=== PATIENT | female | born 1960 | race Caucasian/White ===

== ENCOUNTER 2016-10-04 11:23 | Emergency (ER) | payer OTHER ==
--- NOTE | 2016-10-04 13:39 | ED ORDER SUMMARY ---
..... Patient: CHRISTIAN CHENG OrderSheet [facility] VisitID: [id number] [address] [place] [address] 56y, F Registration Date/Time: 10/04/2016 ORDER SHEET Weight: 77.1 kg (stated) Allergies: Ibuprofen GENERAL ORDERS: MEDICATION ORDERS: Hydrocodone-APAP PO 5/325 mg (NOW) (13:35 10/04/2016 Shell Mata) (Ac 13:36 Burton Sanchez.Marv) (13:53 Burton Sanchez.Marv) IV FLUIDS: ORDER SHEET NOTES: [Electronically signed by Esther Walton P.A.-C (13:44 10/04/2016)] [Electronically signed by Mary Grace Lutz R.N. (13:55 10/04/2016)] [Electronically locked/signed by Mary Grace Lutz R.N. (13:55 10/04/2016)]
--- NOTE | 2016-10-04 13:39 | ED ORDER SUMMARY ---
..... Patient: CHRISTIAN CHENG OrderSheet [facility] VisitID: [id number] [address] [place] [address] 56y, F Registration Date/Time: 10/04/2016 ORDER SHEET Weight: 77.1 kg (stated) Allergies: Ibuprofen GENERAL ORDERS: MEDICATION ORDERS: Hydrocodone-APAP PO 5/325 mg (NOW) (13:35 10/04/2016 Shell Mata) (Ac 13:36 Burton Sanchez.Marv) (13:53 Burton Sanchez.Marv) IV FLUIDS: ORDER SHEET NOTES: [Electronically signed by Esther Walton P.A.-C (13:44 10/04/2016)] [Electronically signed by Mary Grace Lutz R.N. (13:55 10/04/2016)] [Electronically locked/signed by Mary Grace Lutz R.N. (13:55 10/04/2016)]
--- NOTE | 2016-10-04 13:39 | ED CLINICAL REPORT ---
Clinical Report - Physicians/Mid Levels [facility] [address] [place] [address] 10/04/2016 11:23 Patient: CHRISTIAN CHENG Time Seen: 13:41 Oct 04 2016. Arrived- By private vehicle. Historian- patient. HISTORY OF PRESENT ILLNESS Chief Complaint: back pain, neck pain, chronic pain, b/l knee pain. This started yesterday years/ months and is still present. (56-year-old female who reports chronic back pain history of bilateral knee pain, yesterday upon standing sustained pain to her right knee, which has since radiated to her low back and neck. She repoors worsening, given her inability to sleep. She has an appointment on the , with pcp , who is aware of her pain, however does not prescribe hets history of meth use recently. Reports history of narcotic dependence. Denies any new recent fall or trauma. Paresthesias, incontinence. Denies fevers. Denies any recent illness. Patient arrives with family.). REVIEW OF SYSTEMS No fever, nausea, diarrhea, chills or difficulty with urination. No skin rash or calf pain. All systems otherwise negative, except as recorded above. PAST HISTORY Problems: Sprain. Sinusitis. Bronchitis. Changed Mental Status. Intervertebral Disc Disease. Adjustment Disorder. Insomnia. Sciatica. Chest Wall Pain. Dental Caries. Dental Pain. Hyperlipidemia. Depression. Neck Pain. Tetanus Status. LNMP - Last Normal Menstrual Period. Back Injury. Back Pain. Lumbar Strain. Headache. Hypertension. Additional Surgeries: Carpal Tunnel Surgery. Dental Surgery. Shoulder Surgery. Tubal Ligation. Medications: bipolar medicine. Hctz 25mg daily . Lisinopril Oral 20 mg, daily. Paxil Oral. Allergies: Ibuprofen. SOCIAL HISTORY Smoker- current status unknown. History of drug use: methamphetamines, marijuana. Not an IV drug user. ADDITIONAL NOTES The nursing notes have been reviewed. PHYSICAL EXAM Vital Signs: 10/04/2016 12:34 BP: 112/77. HR: 73. RR: 18. O2 saturation: 99%. Temp: 98.7 F. Pain level now: 9/10. Appearance: Alert. ENT: Nose normal. Neck: Normal inspection. Neck supple. CVS: Normal heart rate and rhythm. Heart sounds normal. Respiratory: No respiratory distress. Breath sounds normal. Back: Mild soft-tissue tenderness in the right lower and left lower lumbar area. No limitation in ROM. Skin: Skin warm. Extremities: Right hip. No tenderness. Left hip. No tenderness or swelling. Right knee. No tenderness, swelling, ecchymosis or foreign body. Left knee. No tenderness or swelling. Neuro: Oriented X 3. No motor deficit. Sensory deficit noted. PROGRESS AND PROCEDURES Course of Care: There are no risks for spinal epidural abscess or hematoma as patient is without any risk factors such as IVDA or evidence of active infection, no midline tenderness to percussion. Hence I do not feel emergent imaging with an MRI is indicated. However I did discuss with the patient that if these symptoms develop, or if the pain does not resolve an MRI may need to be done outpatient, or in the ED if symptoms worsen acutely or new onset of the above mentioned symptoms develop. Patient is stable. Symptoms better. Patient/family counseled. Disposition: Discharged. CLINICAL IMPRESSION Hypertension. Polyarthritis. Chronic lumbar back pain. INSTRUCTIONS OTC Medications: Benadryl Allergy 25 mg (available over the counter): take 1 orally for 3 days. Dispense ten (10). No refill. Substitution is permissible. Follow-up: Follow up with your doctor on the . (Electronically signed by Esther Walton P.A.-C 10/04/2016 13:44)
--- NOTE | 2016-10-04 13:39 | ED NURSING NOTES ---
Clinical Report - Nurses [facility] [address] [place] [address] 10/04/2016 11:23 Patient: CHRISTIAN CHENG TRIAGE Triage time 12:34. Acuity: LEVEL 4. Chief Complaint: MUSCLE ACHES and BACK PAIN. Alert. No acute distress. VIRAL COMA SCORE: [place] Coma Scale: 15- eyes open spontaneously (4); best verbal response- oriented x 4 (5); best motor response- obeys commands (6). --12:43 Mary Grace Lutz R.N. 12:34 10/04/16. BP: 112/77. HR: 73. RR: 18. O2 saturation: 99% on room air. Temp: 98.7 F. Pain level now: 06/05. --12:43 Mary Grace Lutz R.N. Weight: 77.1 kg stated. Height/Length: 63 inches Per Patient. BMI: 30.1. --12:40 Mary Grace Lutz R.N. Medications Hctz 25mg daily . Lisinopril Oral 20 mg, daily. Paxil Oral. --12:38 Mary Grace Lutz R.N. bipolar medicine. --12:39 Mary Grace Lutz R.N. Medication/allergy information source: the patient. --12:43 Mary Grace Lutz R.N. Allergies Ibuprofen. --12:39 Mary Grace Lutz R.N. History Arrived by private vehicle. Historian: patient. Accompanied by family. Primary physician (Raymond). Onset. (since 2011). PAST MEDICAL HX: The patient is post-menopausal. SOCIAL HX: Heavy tobacco smoker- 1-2 packs per day. Alcohol use. Patient is a recovering alcoholic. (2011). History of drug use: marijuana. FALL RISK ASSESSMENT: Fall risk assessment completed. No fall risk identified. FUNCTIONAL ASSESSMENT: Functional assessment: no impairments noted. LEARNING NEEDS ASSESSMENT: The learning needs assessment revealed no barriers. --12:43 Mary Grace Lutz R.N. PROBLEMS: Sprain. Sinusitis. Bronchitis. Changed Mental Status. Intervertebral Disc Disease. Adjustment Disorder. Insomnia. Sciatica. Chest Wall Pain. Dental Caries. Dental Pain. Hyperlipidemia. Depression. Neck Pain. Tetanus Status. LNMP - Last Normal Menstrual Period. Back Injury. Back Pain. Lumbar Strain. Headache. Hypertension. --12:40 Mary Grace Lutz R.N. ADDITIONAL SURGERIES: Carpal Tunnel Surgery. Dental Surgery. Shoulder Surgery. Tubal Ligation. --12:40 Mary Grace Lutz R.N. Assessment GENERAL / NEURO / PSYCH: The patient is awake and alert, is oriented and cooperative and appears uncomfortable. She has poor eye contact. RESPIRATORY: Respirations not labored. SKIN: Skin is warm and dry. --12:43 Mary Grace Lutz R.N. Interventions ID and allergy band on patient. To waiting room. --12:43 Mary Grace Lutz R.N. PHYSICAL ASSESSMENT 13:51 10/04/16. Ambulatory to room. GENERAL / NEURO / PSYCH: Alert. Oriented X 4. Appears in no acute distress. RESPIRATORY: Respirations not labored. SKIN: Skin is warm and dry. --13:51 Mary Grace Lutz R.N. NURSING PROGRESS NOTES 13:40. Patient placed in chair. --13:52 Mary Grace Lutz R.N. 13:40 10/04/2016 Hydrocodone-APAP (Hydrocodone-Acetaminophen) PO 5/325 mg Tablets 1 tab given. Allergies verified, confirmed 5 rights and sedative warning given to the patient. --13:53 Mary Grace Lutz R.N. 13:40. The patient is calm. Overall patient status is the same- she states feels the same. RESPIRATORY: No respiratory distress. SKIN: Skin is warm and dry. --13:53 Mary Grace Lutz R.N. DISPOSITION / DISCHARGE Departure time: 1340. Condition at departure: stable. No learning barriers present. Discharge instructions provided and reviewed with the patient. Reviewed medication(s). Prescription(s) given to the patient. Patient verbalized understanding. Written instructions provided in Luxembourgish. The patient was discharged home and accompanied by brand director. She left the Emergency Department ambulatory and via private vehicle. FALL RISK ASSESSMENT: Fall risk assessment completed. No fall risk identified. --13:54 Bolivar, Mary Grace, R.N. Locked/Released at 10/04/2016 13:55 by Mary Grace Lutz R.N.
--- NOTE | 2016-10-04 13:39 | ED NURSING NOTES ---
Clinical Report - Nurses [facility] [address] [place] [address] 10/04/2016 11:23 Patient: CHRISTIAN CHENG TRIAGE Triage time 12:34. Acuity: LEVEL 4. Chief Complaint: MUSCLE ACHES and BACK PAIN. Alert. No acute distress. VIRAL COMA SCORE: [place] Coma Scale: 15- eyes open spontaneously (4); best verbal response- oriented x 4 (5); best motor response- obeys commands (6). --12:43 Mary Grace Lutz R.N. 12:34 10/04/16. BP: 112/77. HR: 73. RR: 18. O2 saturation: 99% on room air. Temp: 98.7 F. Pain level now: 06/05. --12:43 Mary Grace Lutz R.N. Weight: 77.1 kg stated. Height/Length: 63 inches Per Patient. BMI: 30.1. --12:40 Mary Grace Lutz R.N. Medications Hctz 25mg daily . Lisinopril Oral 20 mg, daily. Paxil Oral. --12:38 Mary Grcae Lutz R.N. bipolar medicine. --12:39 Mary Grace Lutz R.N. Medication/allergy information source: the patient. --12:43 Mary Grace Lutz R.N. Allergies Ibuprofen. --12:39 Mary Grace Lutz R.N. History Arrived by private vehicle. Historian: patient. Accompanied by family. Primary physician (Raymond). Onset. (since 2011). PAST MEDICAL HX: The patient is post-menopausal. SOCIAL HX: Heavy tobacco smoker- 1-2 packs per day. Alcohol use. Patient is a recovering alcoholic. (2011). History of drug use: marijuana. FALL RISK ASSESSMENT: Fall risk assessment completed. No fall risk identified. FUNCTIONAL ASSESSMENT: Functional assessment: no impairments noted. LEARNING NEEDS ASSESSMENT: The learning needs assessment revealed no barriers. --12:43 Mary Grace Lutz R.N. PROBLEMS: Sprain. Sinusitis. Bronchitis. Changed Mental Status. Intervertebral Disc Disease. Adjustment Disorder. Insomnia. Sciatica. Chest Wall Pain. Dental Caries. Dental Pain. Hyperlipidemia. Depression. Neck Pain. Tetanus Status. LNMP - Last Normal Menstrual Period. Back Injury. Back Pain. Lumbar Strain. Headache. Hypertension. --12:40 Mary Grace Lutz R.N. ADDITIONAL SURGERIES: Carpal Tunnel Surgery. Dental Surgery. Shoulder Surgery. Tubal Ligation. --12:40 Mary Grace Lutz R.N. Assessment GENERAL / NEURO / PSYCH: The patient is awake and alert, is oriented and cooperative and appears uncomfortable. She has poor eye contact. RESPIRATORY: Respirations not labored. SKIN: Skin is warm and dry. --12:43 Mary Grace Lutz R.N. Interventions ID and allergy band on patient. To waiting room. --12:43 Mary Grace Lutz R.N. PHYSICAL ASSESSMENT 13:51 10/04/16. Ambulatory to room. GENERAL / NEURO / PSYCH: Alert. Oriented X 4. Appears in no acute distress. RESPIRATORY: Respirations not labored. SKIN: Skin is warm and dry. --13:51 Mary Grace Lutz R.N. NURSING PROGRESS NOTES 13:40. Patient placed in chair. --13:52 Mary Grace Lutz R.N. 13:40 10/04/2016 Hydrocodone-APAP (Hydrocodone-Acetaminophen) PO 5/325 mg Tablets 1 tab given. Allergies verified, confirmed 5 rights and sedative warning given to the patient. --13:53 Mary Grace Lutz R.N. 13:40. The patient is calm. Overall patient status is the same- she states feels the same. RESPIRATORY: No respiratory distress. SKIN: Skin is warm and dry. --13:53 Mary Grace Lutz R.N. DISPOSITION / DISCHARGE Departure time: 1340. Condition at departure: stable. No learning barriers present. Discharge instructions provided and reviewed with the patient. Reviewed medication(s). Prescription(s) given to the patient. Patient verbalized understanding. Written instructions provided in Kiswahili. The patient was discharged home and accompanied by sectional belt mold assembler. She left the Emergency Department ambulatory and via private vehicle. FALL RISK ASSESSMENT: Fall risk assessment completed. No fall risk identified. --13:54 Bolivar, Mary Grace, R.N. Locked/Released at 10/04/2016 13:55 by Mary Grace Lutz R.N.
--- NOTE | 2016-10-04 13:55 | ED MED RECONCILIATION SUMMARY ---
Patient: CHRISTIAN CHENG Medication Reconciliation Report [facility] VisitID: [id number] [address] [place] [address] 56y, F Registration Date/Time: 10/04/2016 Weight: 77.1 kg Height/Length: 63 in. BMI: 30.1 ALLERGIES: Ibuprofen The patient's Home Medications are listed below: THE FOLLOWING MEDICATIONS NEED TO BE RECONCILED: bipolar medicine Hctz 25mg daily Lisinopril Oral 20 mg, daily Paxil Oral The source(s) of the original Home Medication information: patient The following Medications were given to the patient in the Emergency Department: Hydrocodone-APAP [PO] PO 1 tab, administered: 10/04/2016 1:40:00 PM The following Medications were prescribed to the patient: Benadryl Allergy 25 mg (available over the counter): take 1 orally for 3 days. Dispense ten (10). No refill. Substitution is permissible. -- Esther Walton P.A.-C
--- NOTE | 2016-10-04 13:55 | ED MAR SUMMARY ---
..... Medication Administration Record [facility] [address] [place] [address] Patient: CHRISTIAN CHENG Visit ID: [id number] 56y, F Weight: 77.1 kg Height/Length: 63 in BMI: 30.1 ALLERGIES: Ibuprofen Given 13:40 10/04/2016 Mary Grace Lutz R.N. Medication Administered: HYDROCODONE-APAP [PO] (HYDROCODONE-ACETAMINOPHEN), Dose: 1 tab 5/325 mg Tablets PO. Medication Ordered: Hydrocodone-APAP PO 5/325 mg (NOW).
--- NOTE | 2016-10-04 13:55 | ED DISCHARGE INSTRUCTIONS ---
Patient: CHRISTIAN CHENG General Instructions [facility] VisitID: [id number] [place] [address] 56y, F Registration Date/Time: 10/04/2016 Hypertension. Polyarthritis. Chronic lumbar back pain. INSTRUCTIONS OTC Medications: Benadryl Allergy 25 mg (available over the counter): take 1 orally for 3 days. Dispense ten (10). No refill. Substitution is permissible. Follow-up: Follow up with your doctor on the . ADDITIONAL INFORMATION Arthralgia Arthralgia is the term for pain in or around the joint. It is not a disease but a symptom. This may involve one or more joints. Sometimes arthralgias move from joint to joint. There are many causes for joint pain. These include: Injury Osteoarthritis (from wearing out of the joint surface) Rheumatoid arthritis (an autoimmune disease) Gout (inflammation of the joint due to crystals in the joint fluid) Infection inside the joint Bursitis (inflammation of the fluid-filled sacs around the joint) Lupus and other collagen-vascular disease Home Care: Rest the involved joint(s) until your symptoms improve. You may use acetaminophen (Tylenol) or ibuprofen (Motrin, Advil) to control pain, unless another pain medicine was prescribed. [NOTE: If you have chronic liver or kidney disease or ever had a stomach ulcer or GI bleeding, talk with your doctor before using these medicines.] Follow Up with your doctor or as advised by our staff. [NOTE: If you had an X-ray it will be reviewed by a specialist. You will be notified of any new findings that may affect your care.] Return Promptly or contact your doctor if any of the following occurs: Pain increases Pain moves to other joints New rash appears Fever of 100.4F (38C) or higher, or as directed by your healthcare provider Back Pain [Acute Or Chronic] Back pain is usually caused by an injury to the muscles or ligaments of the spine. Sometimes the disks that separate each bone in the spine may bulge and cause pain by pressing on a nearby nerve. Back pain may also appear after a sudden twisting/bending force (such as in a car accident), after a simple awkward movement, or lifting something heavy with poor body positioning. In either case, muscle spasm is often present and adds to the pain. Acute back pain usually gets better in one to two weeks. Back pain related to disk disease, arthritis in the spinal joints or spinal stenosis (narrowing of the spinal canal) can become chronic and last for months or years. Unless you had a physical injury (for example, a car accident or fall) X-rays are usually not ordered for the initial evaluation of back pain. If pain continues and does not respond to medical treatment, x-rays and other tests may be performed at a later time. Home Care: You may need to stay in bed the first few days. But, as soon as possible, begin sitting or walking to avoid problems with prolonged bed rest (muscle weakness, worsening back stiffness and pain, blood clots in the legs). When in bed, try to find a position of comfort. A firm mattress is best. Try lying flat on your back with pillows under your knees. You can also try lying on your side with your knees bent up towards your chest and a pillow between your knees. Avoid prolonged sitting. This puts more stress on the lower back than standing or walking. During the first two days after injury, apply an ICE PACK to the painful area for 20 minutes every 2-4 hours. This will reduce swelling and pain. HEAT (hot shower, hot bath or heating pad) works well for muscle spasm. You can start with ice, then switch to heat after two days. Some patients feel best alternating ice and heat treatments. Use the one method that feels the best to you. You may use acetaminophen (Tylenol) or ibuprofen (Motrin, Advil) to control pain, unless another pain medicine was prescribed. [NOTE: If you have chronic liver or kidney disease or ever had a stomach ulcer or GI bleeding, talk with your doctor before using these medicines.] Be aware of safe lifting methods and do not lift anything over 15 pounds until all the pain is gone. Follow Up with your doctor or this facility if your symptoms do not start to improve after one week. Physical therapy may be needed. [NOTE: If X-rays were taken, they will be reviewed by a radiologist. You will be notified of any new findings that may affect your care.] Get Prompt Medical Attention if any of the following occur: Pain becomes worse or spreads to your legs Weakness or numbness in one or both legs Loss of bowel or bladder control Numbness in the groin or genital area You have been given the following additional information: Arthralgia Back Pain (Acute Or Chronic) (Electronically signed by Esther Walton P.A.-C 10/04/2016 13:44)
--- NOTE | 2016-10-04 13:55 | ED MED RECONCILIATION SUMMARY ---
Patient: CHRISTIAN CHENG Medication Reconciliation Report [facility] VisitID: [id number] [address] [place] [address] 56y, F Registration Date/Time: 10/04/2016 Weight: 77.1 kg Height/Length: 63 in. BMI: 30.1 ALLERGIES: Ibuprofen The patient's Home Medications are listed below: THE FOLLOWING MEDICATIONS NEED TO BE RECONCILED: bipolar medicine Hctz 25mg daily Lisinopril Oral 20 mg, daily Paxil Oral The source(s) of the original Home Medication information: patient The following Medications were given to the patient in the Emergency Department: Hydrocodone-APAP [PO] PO 1 tab, administered: 10/04/2016 1:40:00 PM The following Medications were prescribed to the patient: Benadryl Allergy 25 mg (available over the counter): take 1 orally for 3 days. Dispense ten (10). No refill. Substitution is permissible. -- Esther Walton P.A.-C
--- NOTE | 2016-10-04 13:55 | ED MAR SUMMARY ---
..... Medication Administration Record [facility] [address] [place] [address] Patient: CHRISTIAN CHENG Visit ID: [id number] 56y, F Weight: 77.1 kg Height/Length: 63 in BMI: 30.1 ALLERGIES: Ibuprofen Given 13:40 10/04/2016 Mary Grace Lutz R.N. Medication Administered: HYDROCODONE-APAP [PO] (HYDROCODONE-ACETAMINOPHEN), Dose: 1 tab 5/325 mg Tablets PO. Medication Ordered: Hydrocodone-APAP PO 5/325 mg (NOW).
== END 2016-10-04 13:40 | disposition home or self-care (01) ==
LOC: ED SRH 11:23
DX: I10 Essential (primary) hypertension (principal); M13.0 Polyarthritis, unspecified; M54.5 Low back pain; G89.29 Other chronic pain; Z79.899 Other long term (current) drug therapy; Z88.6 Allergy status to analgesic agent

== ENCOUNTER 2017-01-19 14:21 | Outpatient (CLI) | payer OTHER ==
--- NOTE | 2017-01-19 16:38 | DIAGNOSTIC IMAGING REPORT ---
PROCEDURE: MR LOWER EXT JOINT WO CONT-LT INDICATION: PAIN IN LEFT KNEE TECHNIQUE: PD axial, T1 and PD fat sat coronal, PD and PD fat sat sagittal, and sagittal oblique STIR sequence through the ACL. COMPARISON: None. FINDINGS: Menisci: Focal intrinsic intermediate signal within the posterior mesial horn of the lateral meniscus (series 7/8 image 13, series 4 image 17). Very small horizontal tear in the body of the medial meniscus (series 4 images 12 and 13). There is a focal vertical tear in the free edge of the body of the lateral meniscus (series 4 image 14). Ligaments: Anterior and posterior cruciate ligaments are intact. Medial and lateral collateral ligament complexes including posterolateral corner structures are normal. Extensor mechanism: Intact retinacular fibers, distal quadriceps, and patellar tendon. Normal patellar position. Osseous structures and articular surfaces: Very tiny focal subchondral edema in the posterior lateral tibial plateau (series 4 image 17, series 6 image 60). Moderate diffuse cartilage thinning in the lateral compartment, mainly along the tibial plateau without full-thickness defect. 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 Minor cartilage irregularity along the lateral patellar facet. Fluid, soft tissues, and joint space: Very small joint effusion and long thin Rowley's cyst measuring approximately 6.3 cm in length but about 6 mm in thickness. Muscles are normal in bulk and signal. Tendinous attachments are within normal limits. No bursal fluid collections. IMPRESSION: 1. Tiny lateral and medial meniscal tears, and probable contusion involving the lateral meniscus. 2. Mild to moderate, mainly bicompartment chondromalacia, lateral worse than medial. 3. Very small joint effusion and small Rowley's cyst.
== END 2017-01-19 23:00 ==
LOC: MRI SRH 14:21
DX: M23.201 Derangement of unspecified lateral meniscus due to old tear or injury, left knee (principal); M23.204 Derangement of unspecified medial meniscus due to old tear or injury, left knee; M94.262 Chondromalacia, left knee; M71.22 Synovial cyst of popliteal space [Baker], left knee